=== PATIENT | female | born 1990 | race Caucasian/White ===

== ENCOUNTER 2021-05-05 20:48 | Emergency (ER) | payer OTHER, SELFPAY ==
[2021-05-05 20:45] VITALS: BP 123/82; PULSE 107; RESP 23; TEMP 36.3; O2SAT 99; BMI 45.2
[2021-05-05 20:57] VITALS: BP 129/84; PULSE 105; O2SAT 99
[2021-05-05 21:00] VITALS: BP 123/82; PULSE 86; O2SAT 100
[2021-05-05] MEDS: HYDROMORPHONE 1 MG INJ (21:00)
--- NOTE | 2021-05-05 21:11 | ED.GENADULT ---
HPI - General Adult General Chief complaint: Extremity Injury, Lower Stated complaint: Broken Ankle Time Seen by Provider: 05/05/21 21:10 Source: patient and EMS Mode of arrival: EMS History of Present Illness HPI narrative: Patient is a 31-year-old female here for evaluation of a right ankle injury. She who arrived by EMS. She was [place] local trail when she fell twisting her ankle. Has been unable to walk since then. No other injuries reported from the event. She did receive pain medication prior to arrival by EMS. Related Data Previous Rx's Medication Instructions Recorded cephalexin 500 mg capsule 500 mg PO QID 5 Days #20 cap 05/05/21 hydrocodone 5 mg-acetaminophen 325 1 tab PO Q4-6H PRN #20 tab 05/05/21 mg tablet Allergies Allergy/AdvReac Type Severity Reaction Status Date / Time No Known Drug Allergies Allergy Verified 05/05/21 21:35 Review of Systems Constitutional Constitutional: Reports system reviewed and no additional complaints, except as documented Cardiovascular Cardiovascular: Reports system reviewed and no additional complaints, except as documented Respiratory Respiratory: Reports system reviewed and no additional complaints, except as documented Gastrointestinal Gastrointestinal: Reports system reviewed and no additional complaints, except as documented Musculoskeletal Comments: Right ankle pain Integumentary/Breasts Comments: Abrasions and small laceration right lower extremity Neurologic Neurologic: Reports system reviewed and no additional complaints, except as documented Hematologic/Lymphatic On Anticoagulants: No Patient History Medical History Healthy adult Social History Smoking Status: Never smoker Exam Initial Vital Signs Initial Vital Signs: Vital Signs Temperature 97.4 F L 05/05/21 20:45 Pulse Rate 107 H 05/05/21 20:45 Respiratory Rate 23 05/05/21 20:45 Blood Pressure 123/82 05/05/21 20:45 Pulse Oximetry 99 05/05/21 20:45 Const General: cooperative and healthy appearing HENMT Head: normal to inspection and normocephalic Resp Effort & Inspection: normal respiratory effort Cardio Pulses: dorsalis pedis present on the right GI Inspection: normal to inspection Skin Other: Patient has an abrasion to the anterior portion of the proximal right strauss. She also has a small 1 cm laceration to the distal portion of the right strauss as well. Neuro General: patient alert and patient awake Sensory Exam: no sensory deficits noted Extrem Other: Patient with deformity and tender to palpation of her right ankle. Her right knee is unremarkable. Psych Appearance: grossly normal Procedures Orthopedic Splinting/Casting Injury #1: Side: right Lower Extremity Injury Location: ankle Lower Extremity Immobilizer: posterior splint and stirrup splint Other Orthopedic Equipment: crutches Post splinting neuro exam: intact Post splinting vascular exam: intact Placed by: Provider Course Orders Ordered: ED Orders 05/05/21 21:10 XR ankle RT min 3V Stat Discontinued Medications Hydrocodone Bitart/Acetaminophen (Hydrocodone/Acet 5/325 Prepack) 1 bottle MISC SEEINSTR ONE Stop: 05/05/21 22:21 Last Admin: 05/05/21 22:53 Dose: 1 bottle Documented by: RUIZ Cefazolin Sodium (Cefazolin 1 Gm Vial) 2 gm IV NOW ONE Stop: 05/05/21 21:12 Last Admin: 05/05/21 21:45 Dose: 2 gm Documented by: RUIZ Vital Signs Vital signs: Vital Signs - 8 hr 05/05/21 20:57 05/05/21 21:00 05/05/21 23:17 Pulse Rate 105 H 86 91 H Respiratory Rate 18 Blood Pressure 129/84 123/82 155/93 H Pulse Oximetry 99 100 99 Medical Decision Making Imaging Data Extremity x-ray #1: Radiologist's Impression: [address] [id number] ReportSigned Patient: Manuela Almaguer#: [id number]: 1990Acct:[id number]/Sex: 31 / FDate of Service: 05/05/21Loc: EDAccession Number: [id number] Procedure: XR ankle RT min 3V Ordering Provider: Garrison Richards D.O. PROCEDURE: XR ANKLE RT MIN 3V INDICATIONS: fall with fracture TECHNIQUE: 3 views of the ankle were acquired. COMPARISON: None. FINDINGS: Bones: Mildly displaced comminuted fracture of the distal fibula. Widening of the medial ankle mortise. Mildly displaced medial malleolar fracture. Soft tissues: No tibiotalar joint effusion. Achilles tendon appears normal. IMPRESSION: 1. Medial and lateral malleolar fractures. Dictated by: Denny Mae M.D. on 05/05/2021 at 21:29 Approved by: Denny Mae M.D. on 05/05/2021 at 21:30 MDM Narrative Medical decision making narrative: The wounds were cleaned peer the laceration on the anterior portion of the strauss is very small. It is not over any of the fracture sites have low suspicion for an open fracture however I will placed ablation on antibiotics. She does have a medial malleolar and fibula fracture. She was placed in a splint. She is neurovascularly intact. Will discharge patient home with instructions on follow-up and care. She is not from the local area so she will contact her primary doctor when she returns home however despite this she was given the information for our local orthopedic group there were no other injuries reported from the event nor found on the exam. Patient expressed understanding and agreement. Discharge Plan Departure Patient Disposition: Home Clinical Impression: Ankle fracture Instructions: How to Use Crutches, DI for Ankle Fracture, How to Take Care of Your Splint Activity Restrictions/Additional Instructions: The splint does need to stay on in stay clean and stay dry. You are not to walk on your right leg. Use the crutches. A prescription for pain medication and antibiotics was electronically transmitted to [facility]. Start taking them as directed. When you return home you do need to contact your primary doctor as you will need follow-up with Orthopedics. Please return to the emergency department for any new or worsening symptoms Prescriptions: New hydrocodone-acetaminophen 5-325 mg tablet 1 tab PO Q4-6H PRN (Reason: pain) Qty: 20 RF: 0 cephalexin 500 mg capsule 500 mg PO QID 5 Days Qty: 20 RF: 0 Referrals: Param Aguilera MD [Physician] -
[2021-05-05] MEDS: CEFAZOLIN 1 GM VIAL 2 GM IV (21:45)
[2021-05-05] MEDS: HYDROCODONE/ACET 5/325 PREPACK 1 BOTTLE MISC (22:53)
[2021-05-05 23:17] VITALS: BP 155/93; PULSE 91; RESP 18; O2SAT 99
== END 2021-05-05 23:21 | disposition home or self-care (01) ==
PROVIDERS: Emergency Provider Emergency Medicine
DX: S82.891A Other fracture of right lower leg, initial encounter for closed fracture (principal); W19.XXXA Unspecified fall, initial encounter
CPT/HCPCS: 29515; 73610; 96374; 96375; 99284; J0690; J1170